=== PATIENT | female | born 1960 | race Caucasian/White ===

== ENCOUNTER 2017-01-30 06:40 | Emergency (ER) | payer BC, OTHER ==
[2017-01-30] MEDS ORDERED: Ondansetron HCl/PF 4 MG/2 ML Vial ONE (07:15)
[2017-01-30] MEDS ORDERED: Ketorolac Tromethamine 30 MG/ML VIAL ONE (07:16)
[2017-01-30 07:19] LABS: #Basophils 0.1 thou/uL (0.0-0.2); #Eosinphils 0.1 thou/uL (0.0-0.7); #Lymphocytes 2.4 thou/uL (1.20-3.40); #Monocytes 0.7 thou/uL (0.11-0.59); #Neutrophils 5.3 thou/uL (1.40-6.50); %Eosinophils 1.6 % (0.0-10.0); %Lymphocytes 27.7 % (21.0-51.0); %Monocytes 8.5 % (0.0-10.0); %Neutrophils 61.2 % (42.0-75.0); Hemoglobin 15.4 g/dL (12.0-16.0); Mean Corpuscular Hemoglobin 32.1 pg (27.0-31.0); Mean Corpuscular Volume 91.6 fl (81.0-99.0); Mean Platelet Volume 7.5 fL (7.4-10.4); Platelet Count 235 thou/uL (130-400); RBC Distribution Width 12.2 % (11.5-14.5); Red Blood Cell (RBC) Count 4.79 mill/uL (4.20-5.40); White Blood Cell (WBC) Count 8.6 thou/uL (4.8-10.8)
[2017-01-30 07:31] LABS: Bilirubin Negative (Negative); Blood, Urine Trace (Negative); Clarity Slightly Cloudy (Clear); Glucose, Urine (Dipstick) Negative (Negative); Leukocyte Negative (Negative); Nitrite Negative (Negative); Protein, Urine (Dipstick) Negative (Neg-Trace); Specific Gravity, Urine 1.025 (1.005-1.030); Urobilinogen 0.2 mg/dL (0.2-1.0); pH, Urine 5.5 (5.0-9.0)
[2017-01-30 07:35] LABS: Bacteria/HPF 1+ HPF (None Seen); RBC/HPF 0-3 HPF (0-3); WBC/HPF 0-3 HPF (0-3)
[2017-01-30 07:41] LABS: ALT (SGPT) 23 U/L (8-55); AST (SGOT) 23 U/L (5-34); Albumin 3.9 g/dL (3.5-5.0); Alkaline Phosphatase 111 U/L (40-150); Anion Gap 15 mmol/L (10-20); BUN (Urea Nitrogen) 13 mg/dL (9.8-20.1); Bilirubin, Total 0.9 mg/dL (0.2-1.2); Calc. Creatinine Clearance 0 mL/min (70-130); Calcium 9.9 mg/dL (7.8-10.44); Carbon Dioxide 20 mmol/L (22-29); Chloride 107 mmol/L (98-107); Estimated GFR-MDRD 86; Globulin 3.6 g/dL (2.4-3.5); Glucose 127 mg/dL (70-105); Lipase 52 U/L (8-78); Potassium 4.1 mmol/L (3.5-5.1); Protein, Total 7.5 g/dL (6.0-8.3); Sodium 138 mmol/L (136-145)
--- NOTE | 2017-01-30 08:50 | CT ---
CONTRAST ENHANCED CT IMAGES OF ABDOMEN AND PELVIS: Date: 01/30/17 HISTORY: Abdominal pain. FINDINGS: The patient received iodinated contrast given IV. Unfortunately, oral contrast was not given. FINDINGS: The lung bases are unremarkable. The liver and spleen are unremarkable. The pancreas is unremarkable. The gallbladder contains numerous mixed density gallstones, too numerous to count, compatible with ex tensive cholelithiasis. No evidence of gallbladder wall thickening is seen. The common bile duct is o f normal size. No evidence of periaortic lymphadenopathy is seen. The SMA, celiac, and ERAN are patent . The renal arteries are patent. Both kidneys are unremarkable. Adrenal glands are unremarkable. Loop s of small bowel and colon demonstrate no significant evidence of abnormalities. IMPRESSION: Extensive cholelithiasis. POS: CHARLES
== END 2017-01-30 08:46 | disposition home or self-care (01) ==
LOC: BURERS 06:40
DX: K80.20 Calculus of gallbladder without cholecystitis without obstruction (principal); E03.9 Hypothyroidism, unspecified; K21.9 Gastro-esophageal reflux disease without esophagitis; Z79.899 Other long term (current) drug therapy
CPT/HCPCS: 74177; 80053; 81003; 81015; 83690; 85025; 96374; 96375; J1885; J2405

== ENCOUNTER 2017-02-01 11:31 | Emergency (ER) | payer OTHER ==
[2017-02-01 12:23] LABS: Bilirubin Negative (Negative); Blood, Urine Small (Negative); Clarity Slightly Cloudy (Clear); Glucose, Urine (Dipstick) Negative (Negative); Leukocyte Negative (Negative); Nitrite Negative (Negative); Protein, Urine (Dipstick) Trace mg/dL (Neg-Trace)
[2017-02-01 12:28] LABS: Hemoglobin 15.3 g/dL (12.0-16.0); Mean Corpuscular HGB CONC 34.8 g/dL (32.0-36.0); Mean Corpuscular Hemoglobin 32.1 pg (27.0-31.0); Mean Corpuscular Volume 92.2 fl (81.0-99.0); Mean Platelet Volume 7.6 fL (7.4-10.4); Platelet Count 202 thou/uL (130-400); RBC Distribution Width 12.5 % (11.5-14.5); Red Blood Cell (RBC) Count 4.76 mill/uL (4.20-5.40); White Blood Cell (WBC) Count 20.1 thou/uL (4.8-10.8)
[2017-02-01 12:32] LABS: INR-International Normal Ratio 1.2; PTT 36.3 SEC (22.9-36.1); Prothrombin Time 15.8 SEC (12.0-14.7)
[2017-02-01 12:33] LABS: Bacteria/HPF Rare-Few HPF (None Seen); RBC/HPF 0-3 HPF (0-3); Squamous Epithelial 0-3 HPF (0-3); WBC/HPF 0-3 HPF (0-3)
[2017-02-01 12:41] LABS: ALT (SGPT) 115 U/L (8-55); AST (SGOT) 126 U/L (5-34); Albumin 3.7 g/dL (3.5-5.0); Alkaline Phosphatase 123 U/L (40-150); Anion Gap 14 mmol/L (10-20); BUN (Urea Nitrogen) 8 mg/dL (9.8-20.1); Bilirubin, Total 3.1 mg/dL (0.2-1.2); Calc. Creatinine Clearance 0 mL/min (70-130); Calcium 10.8 mg/dL (7.8-10.44); Carbon Dioxide 24 mmol/L (22-29); Chloride 101 mmol/L (98-107); Estimated GFR-MDRD 76; Glucose 128 mg/dL (70-105); Potassium 3.6 mmol/L (3.5-5.1); Protein, Total 7.7 g/dL (6.0-8.3); Sodium 135 mmol/L (136-145)
[2017-02-01] MEDS ORDERED: Ampicillin/Sulbactam 1.5 GM VIAL ONE (12:59)
[2017-02-01] MEDS ORDERED: diphenhydrAMINE 50 MG/ML VIAL ONE (12:59)
[2017-02-01] MEDS ORDERED: Sodium Chloride 0.9% 100 ML ONE (12:59)
[2017-02-01] MEDS ORDERED: Fentanyl 100 MCG/2 ML VIAL ONE (12:59)
--- NOTE | 2017-02-01 13:01 | RAD ---
PA AND LATERAL VIEWS CHEST: HISTORY: Fever and cough. COMPARISON: 12/05/2014 FINDINGS: The heart size is normal. There is elevation of the right hemidiaphragm, which is new. No focal are as of consolidation, pneumothorax, or pleural effusions are seen. There are degenerative changes in the spine. IMPRESSION: No radiographic evidence of acute cardiopulmonary process. POS: H
[2017-02-01 13:07] LABS: Band 3 % (5-11); Lymphocytes 4 % (21-51); MDiff Complete? YES; Monocytes 1 % (0-10); Neutrophil 92 % (42-75)
[2017-02-01 13:08] LABS: PLT Morphology Comment Appears Adequate
--- NOTE | 2017-02-01 13:41 | ULT ---
RIGHT UPPER QUADRANT ULTRASOUND: HISTORY: Right upper arm pain. FINDINGS: The liver demonstrates increased echogenicity, consistent with fatty infiltration. No focal mass rgetel ntified. No ductal dilatation is seen. There are shadowing gallstones and echogenic sludge in the gallbladder with gallbladder wall thickeni ng, measuring 5 mm. No pericholecystic fluid is seen. The common duct measures 9 mm in diameter. T here is suggestion of echogenic sludge in the common bile duct. The right kidney measures 11 cm in l ength and is grossly unremarkable. No free fluid is seen in the Jarrett pouch. The pancreas is not satisfactorily visualized due to overlying bowel gas. IMPRESSION: 1. Cholelithiasis. 2. Gallbladder sludge and wall thickening. 3. Mild dilatation of the common bile duct with possible sludge. 4. Fatty liver. POS: CHARLES
== END 2017-02-01 13:24 | disposition short-term general hospital (02) ==
LOC: BURERS 11:31
DX: K83.0 Cholangitis (principal); E03.9 Hypothyroidism, unspecified; K21.9 Gastro-esophageal reflux disease without esophagitis; Z79.899 Other long term (current) drug therapy
CPT/HCPCS: 36415; 71020; 76705; 80053; 81003; 81015; 83605; 85025; 85610; 85730; 87040; 94760; 96361; 96374; 96375; J0295; J1200; J3010; J7050

== ENCOUNTER 2017-07-13 16:17 | Outpatient (CLI) | payer OTHER ==
--- NOTE | 2017-07-13 19:26 | RAD ---
LEFT FOOT THREE VIEWS: 07/13/17 No acute fracture was seen. The fifth metatarsal appears intact. Degenerative changes are seen in the first metatarsophalangeal joint with joint space narrowing and some osteophytes. There may have been old trauma here. The remainder of the foot was unremarkable. A small calcaneal spur was seen. IMPRESSION: No acute findings. POS: HOME
== END 2017-07-13 16:18 | disposition home or self-care (01) ==
LOC: BURRAD 16:17
PROVIDERS: ATTEND Podiatrist Foot & Ankle Surgery
DX: M79.672 Pain in left foot (principal)

== ENCOUNTER 2019-04-13 18:48 | Emergency (ER) | payer OTHER ==
--- NOTE | 2019-04-13 20:10 | RAD ---
TWO VIEWS CHEST: 04/13/19 PROVIDED CLINICAL HISTORY: Cough. FINDINGS: Comparison 04/09/19. The frontal view is suboptimally exposed, limiting evaluation. There is evidence for left perihilar a nd probable left mid to lower lung zone air space disease. No pleural fluid or pneumothorax apparent. IMPRESSION: Left sided air space disease, compatible with pneumonia in the appropriate clinical context. Follow-u p after treatment is recommended to evaluate for resolution. POS: ZEINA
[2019-04-13 21:56] LABS: ALT (SGPT) 55 U/L (8-55); AST (SGOT) 77 U/L (5-34); Albumin 4.2 g/dL (3.5-5.0); Alkaline Phosphatase 109 U/L (40-110); Anion Gap 15 mmol/L (10-20); BUN (Urea Nitrogen) 10 mg/dL (9.8-20.1); Bilirubin, Total 0.7 mg/dL (0.2-1.2); Calc. Creatinine Clearance 0 mL/min (70-130); Calcium 10.2 mg/dL (7.8-10.44); Carbon Dioxide 24 mmol/L (22-29); Chloride 106 mmol/L (98-107); Estimated GFR-MDRD Greater than 90; Globulin 3.4 g/dL (2.4-3.5); Glucose 83 mg/dL (70-105); Potassium 3.5 mmol/L (3.5-5.1); Protein, Total 7.6 g/dL (6.0-8.3); Sodium 141 mmol/L (136-145)
[2019-04-13 21:57] LABS: Band 3 % (5-11); Eosinophils 2 % (0-10); Hemoglobin 13.6 g/dL (12.0-16.0); Lymphocytes 35 % (21-51); MDiff Complete? YES; Mean Corpuscular HGB CONC 33.3 g/dL (32.0-36.0); Mean Corpuscular Hemoglobin 31.6 pg (27.0-31.0); Mean Corpuscular Volume 94.8 fL (78.0-98.0); Mean Platelet Volume 8.9 fL (7.4-10.4); Monocytes 15 % (0-10); Neutrophil 44 % (42-75); Platelet Count 151 thou/uL (130-400); Platelet Morphology Comment Appears Adequate; RBC Distribution Width 12.5 % (11.5-14.5); RBC Morphology Normal; Reactive Lymphocytes 1 % (0-10); Red Blood Cell (RBC) Count 4.31 mill/uL (4.20-5.40); Vacuoles SLIGHT
== END 2019-04-13 22:30 | disposition home or self-care (01) ==
LOC: BURERS 18:48
DX: J12.9 Viral pneumonia, unspecified (principal); E03.9 Hypothyroidism, unspecified; K21.9 Gastro-esophageal reflux disease without esophagitis; Z79.51 Long term (current) use of inhaled steroids; Z79.899 Other long term (current) drug therapy
CPT/HCPCS: 71046; 80053; 83605; 85025; 87804

== ENCOUNTER 2019-04-18 08:59 | Outpatient (CLI) | payer OTHER ==
--- NOTE | 2019-04-19 07:39 | RAD ---
XR Chest Pa Lat STANDARD HISTORY: Pneumonia left lung due to infectious organism COMPARISON: 04/13/2019 FINDINGS: The heart size is normal. The lungs are well expanded without focal areas of consolidation, pneumothorax or pleural effusions. IMPRESSION: No radiographic evidence of acute cardiopulmonary process.
== END 2019-04-18 09:00 | disposition home or self-care (01) ==
LOC: BURRAD 08:59
PROVIDERS: ATTEND Family Medicine
DX: J18.9 Pneumonia, unspecified organism (principal)
CPT/HCPCS: 71046